=== PATIENT | female | born 1935 | race Caucasian/White ===

== ENCOUNTER 2016-12-22 07:42 | Day surgery (SDC) | payer MEDICARE, OTHER ==
[~2016-12-22] VITALS: Ht 157.5 cm; Wt 61.7 kg
[2016-12-22] VITALS (16 sets, daily range): BP systolic 114–220; BP diastolic 47–95; PULSE 70–93; RESP 16–27; Ht 157.5 cm; Wt 61.7 kg
[~2016-12-22 07:42] MED LIST: BYSTOLIC; CLONIDINE; ESCITALOPRAM; NORCO; OMEPRAZOLE
[2016-12-22] MEDS ORDERED: METO-448 PO (08:25)
[2016-12-22] MEDS ORDERED: CLON0.2T5 PO (08:25)
[2016-12-22] MEDS ORDERED: OLME40TA14 PO (08:26)
[2016-12-22] MEDS ORDERED: ESCI10TA PO (08:26)
[2016-12-22] MEDS ORDERED: hydrALAzine 20 MG INJ IV ONE (09:00)
[2016-12-22] MEDS ORDERED: AMLODIPINE 10 MG TAB PO ONE (09:00)
[2016-12-22 09:12] LABS: BASOPHIL # 0.1 10^3/ul (0.0-0.1); BASOPHILS % 0.8 % (0.0-2.0); EOSINOPHILS # 0.1 10^3/ul (0.0-0.5); EOSINOPHILS % 0.8 % (0.0-7.0); HEMOGLOBIN 13.3 g/dl (12.0-16.0); LYMPHOCYTES # 1.4 10^3/ul (0.8-2.9); LYMPHOCYTES % 22.7 % (15.0-51.0); MEAN CORPUSCULAR HEMOGLOBIN 28.9 pg (29.0-33.0); MEAN CORPUSCULAR HGB CONC 31.7 g/dl (32.0-37.0); MEAN CORPUSCULAR VOLUME 91.3 fl (82.0-101.0); MEAN PLATELET VOLUME 11.1 fl (7.4-10.4); MONOCYTE # 0.3 10^3/ul (0.3-0.9); NEUTROPHILS % 71.4 % (39.0-77.0); PLATELET COUNT 225 10^3/UL (140-415); RED CELL DISTRIBUTION WIDTH 13.2 % (11.5-14.5); WHITE BLOOD COUNT 6.3 10^3/ul (4.8-10.8)
[2016-12-22 09:33] LABS: INR 0.97; PROTIME 12.9 Sec (12.2-14.2)
[2016-12-22 09:46] LABS: CALCIUM 9.6 mg/dl (8.4-10.2); CREATININE 0.79 mg/dl (0.44-1.00); POTASSIUM 3.4 mmol/L (3.5-5.1)
[2016-12-22] MEDS ORDERED: IODIXANOL LOCM 100 ML BTL ONE (10:08)
[2016-12-22] MEDS ORDERED: FENTAnyl 50 MCG/ML VIAL ONE (10:08)
[2016-12-22] MEDS ORDERED: MIDAZOLAM 1 MG/ML 2 ML INJ ONE (10:08)
[2016-12-22] MEDS ORDERED: HEPARIN 1000 UNITS/ML 10 ML INJ ONE (10:08)
[2016-12-22] MEDS ORDERED: LIDOCAINE 1% (MDV) 20 ML INJ ONE (10:08)
[2016-12-22] MEDS ORDERED: VERAPAMIL 5 MG INJ ONE (10:09)
[2016-12-22] MEDS ORDERED: NITROGLYCERIN (IC) 100 MCG/ML INJ ONE (10:09)
[2016-12-22] MEDS ORDERED: METOPROLOL 50 MG TAB PO ONE (11:30)
[2016-12-22] MEDS ORDERED: morphine 2 MG INJ IV PRN (11:30)
[2016-12-22] MEDS ORDERED: ONDANSETRON 4 MG INJ IV PRN (11:30)
--- NOTE | 2016-12-22 11:30 | OPR ---
Date/Time of Note Date/Time of Note DATE: 12/22/16 TIME: 11:22 Operative Report Free Text/Dictation Procedure Date:12/22/2016 Procedures Performed: 1)Left heart catheterization with selective left and right coronary angiography. Pre-operative Diagnosis: chest pain Post-operative Diagnosis: severe HOCM Indications:81 yo F with HTN, severe LVH, chest pain referred for cardiac cath for evaluation of chest pain and SOB on exertion. Description of Procedure: After informed consent, the patient was brought to the cardiac catheterization lab. The procedure site was prepped and draped in usual manner. The patient was premedicated with versed 1.5 mg . 3 mL lidocaine was injected into the right wrist. Next using the posterior wall technique, the 6/5 ethiopian sheath was inserted into the right radial artery. Next using the JL3.0 and JR4, selective angiography of the left and right coronary arteries were obtained. The FilmTrack dual port pigtail was then advanced into the ventricle and hemodynamics obtained. Left ventricle angiography was not obtained. Next all equipment was removed and hemostasis was obtained by TR band. Findings: Anatomy/Hemodynamics: Left main:normal LAD:normal Diagonal:normal Circumflex:normal Obtuse marginal:normal RCA:normal PDA:normal PLV:normal LV angiography:not done Dual transducer simultaneous LV-Ao recordings At baseline: LV206/0, EDP 19 Ao 150/65 Peak-peak gradient 56 mmHg, mean 50 mmHg Post PVC [place] phenomenon seen: LV: 237/4 Ao:158/78 P-P 79 mmHg, mean 56 mmHg With valsalva: LV: 205/4 Ao: 105/63 P-P 100 mmHg, mean 63 mmHg. 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 No obstructive CAD HTN: uncontrolled Plan: -patient has not been compliant with beta thanh prescription yet. Advised to start metoprolol 25mg BID as prescribed and if tolerates, can increase to 50mg BID. -f/u next week with Dr. Elam for med titration JUWAN VAZQUEZ Dec 22, 2016 11:30
--- NOTE | 2016-12-22 19:37 | RADRPT ---
Vent Rate: 85 bpm RR Interval: 0 msec AL Interval: 142 msec QRS Duration: 82 msec QT Interval: 382 msec QTC Interval: 454 msec P-R-T Stringer: 56 - 27 - 77 degrees Normal sinus rhythm ST amp; T wave abnormality, consider anterolateral ischemia Abnormal ECG Electronically Signed By: Michele Gambino [id number]
== END 2016-12-22 14:30 | disposition home or self-care (01) ==
LOC: SDS 07:42
PROVIDERS: ATTEND Internal Medicine Interventional Cardiology
DX: I42.1 Obstructive hypertrophic cardiomyopathy (principal); I10 Essential (primary) hypertension
CPT/HCPCS: 80048; 85025; 85610; 93005; 93458; C1887; J0360; J1644; J2250; J3010; Q9967